=== PATIENT | female | born 1995 | race American Indian/Alaskan Native ===

== ENCOUNTER 2020-06-30 16:54 | Emergency (ER) | payer MEDICAID ==
[2020-06-30 17:00] VITALS: BP 143/91
--- NOTE | 2020-06-30 18:33 | Event Note ---
ED Screening Note ED Screening Note: states she is having vaginal spotting states she is 10 weeks [employer]GER mild cramping no n/v/d no fever no dysuria PMHx HTN with allergy: morphine LNMP 04/16/2020 /P:2/A:0 This initial assessment/diagnostic orders/clinical plan/treatment(s) is/are subject to change based on patients health status, clinical progression and re- assessment by fellow clinical providers in the ED. Further treatment and workup at subsequent clinical providers discretion. Patient/guardian urged not to elope from the ED as their condition may be serious if not clinically assessed and managed. Initial orders include: labs, UA, US
[2020-06-30 19:33] LABS: Blood Urea Nitrogen 9 mg/dL (7-17); Calcium 9.5 mg/dL (8.4-10.2); Hemolysis Index 5
[2020-06-30 19:45] LABS: BUN/Creatinine Ratio 15
[2020-06-30 19:49] LABS: Bilirubin,Urine NEG (Negative); Blood,Urine NEG (Negative); Color,Urine Yellow (Yellow); Mucus,Urine 1+ /HPF
[2020-06-30 19:52] LABS: Basophils % (Auto) 0.5 % (0.0-1.8); Eosinophils # (Auto) 0.1 K/mm3 (0.0-0.4); Eosinophils % (Auto) 0.5 % (0.0-4.3); Hematocrit 31.9 % (30.3-42.9); Hemoglobin 10.1 gm/dl (10.1-14.3); Lymphocytes # (Auto) 3.7 K/mm3 (1.2-5.4); Lymphocytes % (Auto) 37.2 % (13.4-35.0); Mean Corpuscular HGB Conc 32 % (30-34); Mean Corpuscular Volume 77 fl (79-97); Monocytes # (Auto) 0.8 K/mm3 (0.0-0.8); Monocytes % (Auto) 8.1 % (0.0-7.3); Platelet Count 268 K/mm3 (140-440); Red Blood Count 4.16 M/mm3 (3.65-5.03); Red Cell Distribution Width 18.2 % (13.2-15.2)
--- NOTE | 2020-06-30 23:27 | Emergency Department Report ---
ED Female HPI - General Chief complaint: Vaginal Bleeding Stated complaint: 10WKS /BLEEDING Time Seen by Provider: 06/30/20 18:31 Source: patient Mode of arrival: Ambulatory Limitations: No Limitations - History of Present Illness Initial comments: states she is having vaginal spotting states she is 10 weeks [employer] N[employer] mild cramping no n/v/d no fever no dysuria PMHx HTN with allergy: morphine LNMP 04/16/2020 /P:2/A:0 MD Complaint: vaginal bleeding, pelvic pain Onset/Timin -: days(s) Location: suprapubic Radiation: non-radiating Severity: moderate Severity scale (0 -10): 4 Quality: cramping, aching Consistency: intermittent Improves with: none Worsens with: urination Last Menstrual Period: 04/14/20 EDC: 01/19/21 Associated Symptoms: vaginal bleeding (spotting ), abdominal pain (cramping ), dysuria. denies: vaginal discharge, nausea/vomiting, fever/chills - Related Data Sexually active: Yes : 3 Para: 2 A: 0 Previous Rx's Medication Instructions Recorded Last Taken Type Acetaminophen [Pain Relief] 650 mg PO QID PRN #30 tablet 06/30/20 Unknown Rx cephALEXin [Keflex] 500 mg PO BID 7 Days #14 cap 06/30/20 Unknown Rx ED Review of Systems ROS: Stated complaint: 10WKS /BLEEDING Other details as noted in HPI Constitutional: denies: chills, fever Eyes: denies: eye pain, eye discharge, vision change ENT: denies: ear pain, throat pain Respiratory: no symptoms reported Cardiovascular: denies: chest pain, palpitations Endocrine: no symptoms reported Gastrointestinal: abdominal pain, nausea. denies: vomiting Genitourinary: urgency, dysuria, frequency. denies: hematuria, discharge Musculoskeletal: back pain. denies: joint swelling, arthralgia Skin: denies: rash, lesions Neurological: denies: headache, weakness, paresthesias Psychiatric: denies: anxiety, depression Hematological/Lymphatic: denies: easy bleeding, easy bruising ED Past Medical Hx - Past Medical History Previous Medical History?: Yes Hx Hypertension: Yes - Surgical History Past Surgical History?: Yes Additional Surgical History: x2 - Social History Smoking Status: Never Smoker Substance Use Type: None - Medications Home Medications: Home Medications Medication Instructions Recorded Confirmed Last Taken Type Acetaminophen [Pain Relief] 650 mg PO QID PRN #30 tablet 06/30/20 Unknown Rx cephALEXin [Keflex] 500 mg PO BID 7 Days #14 cap 06/30/20 Unknown Rx ED Physical Exam - General Limitations: No Limitations General appearance: alert, in no apparent distress - Head Head exam: Present: atraumatic, normocephalic - Eye Eye exam: Present: normal appearance - ENT ENT exam: Present: mucous membranes moist - Neck Neck exam: Present: normal inspection - Respiratory Respiratory exam: Present: normal lung sounds bilaterally. Absent: respiratory distress, wheezes, stridor, chest wall tenderness - Cardiovascular Cardiovascular Exam: Present: regular rate, normal rhythm, normal heart sounds. Absent: systolic murmur, diastolic murmur, rubs, gallop - GI/Abdominal GI/Abdominal exam: Present: soft, normal bowel sounds. Absent: distended, tenderness, bruit, hernia - Rectal Rectal exam: Present: deferred - Extremities Exam Extremities exam: Present: normal inspection, full ROM, normal capillary refill - Back Exam Back exam: Present: normal inspection, full ROM. Absent: tenderness, CVA tenderness (R), CVA tenderness (L) - Neurological Exam Neurological exam: Present: alert, oriented X3, CN II-XII intact, normal gait - Psychiatric Psychiatric exam: Present: normal affect, normal mood - Skin Skin exam: Present: warm, dry, intact, normal color. Absent: rash ED Course Vital Signs 06/30/20 06/30/20 16:59 20:13 Temperature 32.1 F L 98.6 F Pulse Rate 82 Respiratory 14 Rate Blood Pressure 143/91 O2 Sat by Pulse 100 Oximetry ED Medical Decision Making - Lab Data Result diagrams: 06/30/20 18:50 06/30/20 18:50 Labs 06/30/20 06/30/20 06/30/20 18:50 18:50 18:50 WBC 9.9 RBC 4.16 Hgb 10.1 Hct 31.9 MCV 77 L MCH 24 L MCHC 32 RDW 18.2 H Plt Count 268 Lymph % (Auto) 37.2 H Worth % (Auto) 8.1 H Eos % (Auto) 0.5 Baso % (Auto) 0.5 Lymph # (Auto) 3.7 Worth # (Auto) 0.8 Eos # (Auto) 0.1 Baso # (Auto) 0.0 Seg Neutrophils % 53.7 Seg Neutrophils # 5.3 Sodium 138 Potassium 3.8 Chloride 102.7 Carbon Dioxide 23 Anion Gap 16 BUN 9 Creatinine 0.6 Estimated GFR > 60 BUN/Creatinine Ratio 15 Glucose 87 Calcium 9.5 HCG, Quant [id number] H Urine Color Urine Turbidity Urine pH Ur Specific Laurel Urine Protein Urine Glucose (UA) Urine Ketones Urine Blood Urine Nitrite Urine Bilirubin Urine Urobilinogen Ur Leukocyte Esterase Urine WBC (Auto) Urine RBC (Auto) U Epithel Cells (Auto) Urine Mucus Blood Type 06/30/20 06/30/20 19:00 19:03 WBC RBC Hgb Hct MCV MCH MCHC RDW Plt Count Lymph % (Auto) Worth % (Auto) Eos % (Auto) Baso % (Auto) Lymph # (Auto) Worth # (Auto) Eos # (Auto) Baso # (Auto) Seg Neutrophils % Seg Neutrophils # Sodium Potassium Chloride Carbon Dioxide Anion Gap BUN Creatinine Estimated GFR BUN/Creatinine Ratio Glucose Calcium HCG, Quant Urine Color Yellow Urine Turbidity Clear Urine pH 7.0 Ur Specific Laurel 1.025 Urine Protein 30 mg/dl Urine Glucose (UA) Neg Urine Ketones Neg Urine Blood Neg Urine Nitrite Neg Urine Bilirubin Neg Urine Urobilinogen 2.0 Ur Leukocyte Esterase Mod Urine WBC (Auto) 90.0 H Urine RBC (Auto) 5.0 U Epithel Cells (Auto) 7.0 Urine Mucus 1+ Blood Type O POSITIVE - Radiology Data Radiology results: report reviewed, image reviewed Findings Reporting MD: Tanvir Fisher Dictation Time: June 30, 2020 21:53 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 TECHNIQUE: Grayscale and color imaging performed. COMPARISON: None FINDINGS: Uterus measures 8.8 x 5.4 x 5.8 cm with endometrial echocomplex measuring 2.6 centimeters. There is a small cystic structure near the uterine fundus with a pole measuring 1.2 cm in maximal dimension which corresponds with an EGA of 7 weeks and 3 days. Heart rate is 126 bpm. Estimated delivery date is 02/13/2021. Right ovary was not visualized. Left ovary appears unremarkable. No free fluid. IMPRESSION: 1. Single viable intrauterine gestation as above. 2. Right ovary not visualized. Signer Name: Tanvir Fisher MD Signed: 06/30/2020 9:53 PM Workstation Name: [id number] - Medical Decision Making US OB: Single IUP , 7 weeks and 3 days. Heart rate is 126 bpm., UA: pos for luek, wbc, There is no vaginal bleeding at this time, no abnormal vaginal discharge, plan, Abx, pt will follow up with FIRE CONTROL ASSISTANT ion 2-3 days, pt verbalized agreement and understanding of discharge plan. Critical care attestation.: If time is entered above; I have spent that time in minutes in the direct care of this critically ill patient, excluding procedure time. ED Disposition Clinical Impression: UTI (urinary tract infection) during Qualifiers: Trimester: first trimester Qualified Code(s): O23.41 - Unspecified infection of urinary tract in , first trimester Disposition: - TO HOME OR SELFCARE Is pt being admited?: No Does the pt Need Aspirin: No Condition: Stable Instructions: and Urinary Tract Infection Additional Instructions: Positive , 7 weeks and 3 days. Heart rate is 126 bpm. follow up with OBGYN in 2 days. Prescriptions: cephALEXin [Keflex] 500 mg PO BID 7 Days #14 cap Acetaminophen [Pain Relief] 650 mg PO QID PRN #30 tablet PRN Reason: pain Referrals: ETHAN LOUIE MD [Staff Physician] - 2-3 Days Forms: Work/School Release Form(ED) Time of Disposition: 23:46
--- NOTE | 2020-07-01 07:41 | Ultrasound Report ---
OB Ultrasound HISTORY: , spotting. TECHNIQUE: Grayscale and color imaging performed. COMPARISON: None FINDINGS: Uterus measures 8.8 x 5.4 x 5.8 cm with endometrial echocomplex measuring 2.6 centimeters. There is a small cystic structure near the uterine fundus with a pole measuring 1.2 cm in maxim al dimension which corresponds with an EGA of 7 weeks and 3 days. Heart rate is 126 bpm. Estimated de livery date is 02/13/2021. Right ovary was not visualized. Left ovary appears unremarkable. No free fluid. IMPRESSION: 1. Single viable intrauterine gestation as above. 2. Right ovary not visualized. Signer Name: Tanvir Fisher MD Signed: 06/30/2020 10:53 PM Workstation Name: [id number]
== END 2020-06-30 23:45 | disposition home or self-care (01) ==
LOC: ED 16:54
DX: O23.41 Unspecified infection of urinary tract in pregnancy, first trimester (principal); I10 Essential (primary) hypertension; Z79.899 Other long term (current) drug therapy; Z3A.10 10 weeks gestation of pregnancy
CPT/HCPCS: 36415; 76801; 80048; 81001; 84702; 85025; 86900; 86901; 87086

== ENCOUNTER 2020-12-30 15:10 | Outpatient (CLI) | payer MEDICAID ==
[2020-12-30] MEDS ORDERED: LACTATED RINGERS 500 ML IV ONE (15:48)
[2020-12-30] MEDS ORDERED: LACTATED RINGERS 1,000 ML IV SCH (16:00)
[2020-12-30 16:30] LABS: Bilirubin,Urine NEG (Negative); Blood,Urine NEG (Negative); Color,Urine Yellow (Yellow); Mucus,Urine FEW /HPF; Protein,Urine <15 mg/dL mg/dL (Negative); Urobilinogen,Urine < 2.0 mg/dL (<2.0)
[2020-12-30] MEDS ORDERED: TERBUTALINE 1 MG/1 ML INJ IVP ONE (17:36)
[2020-12-30] MEDS ORDERED: BETAMET ACET/BETAMET NA PH 6 MG/ML INJ 5 ML MDV IM ONE (17:38)
[2020-12-30] MEDS ORDERED: NIFEdipine*For Tocolysis only* 10 MG CAPSULE PO ONE (18:57)
[2020-12-30 20:51] VITALS: BP 112/66
== END 2020-12-30 21:30 | disposition home or self-care (01) ==
LOC: TRG 15:10 → APU 15:59 → TRG 21:30
PROVIDERS: ATTEND Obstetrics & Gynecology
DX: O62.9 Abnormality of forces of labor, unspecified (principal); O42.90 Premature rupture of membranes, unspecified as to length of time between rupture and onset of labor, unspecified weeks of gestation; Z3A.33 33 weeks gestation of pregnancy
CPT/HCPCS: 36415; 59025; 76815; 81001; 84112; 96361; 96372; 96374; J0702; J3105; J7120; 96360

== ENCOUNTER 2020-12-31 17:49 | Outpatient (CLI) | payer MEDICAID ==
[2020-12-31] MEDS ORDERED: BETAMET ACET/BETAMET NA PH 6 MG/ML INJ 5 ML MDV IM ONE (18:02)
[2020-12-31] MEDS ORDERED: LACTATED RINGERS 500 ML IV ONE (18:03)
[2020-12-31 18:07] VITALS: BP 136/83
== END 2020-12-31 18:40 | disposition home or self-care (01) ==
LOC: TRG 17:49 → APU 17:50 → TRG 18:40
PROVIDERS: ATTEND Obstetrics & Gynecology
DX: Z34.93 Encounter for supervision of normal pregnancy, unspecified, third trimester (principal); Z3A.34 34 weeks gestation of pregnancy
CPT/HCPCS: 96372; J0702

== ENCOUNTER 2021-01-26 08:43 | Inpatient (IN) | payer MEDICAID ==
[2021-01-26] MEDS ORDERED: FAMOTIDINE 20 MG/2 ML INJ IV SCH (09:00)
[2021-01-26] MEDS ORDERED: BICITRA ORAL LIQD 30ML PO SCH (09:00)
[2021-01-26] MEDS ORDERED: METOCLOPRAMIDE 10 MG/2 ML INJ IV SCH (09:00)
[2021-01-26] MEDS ORDERED: ceFAZolin/Water 2 GM/20 ML 2 GM/20 ML SYRINGE IV NR ×2 (09:00→10:00)
[2021-01-26] MEDS ORDERED: OXYTOCIN DRIP 30 UNITS/500 ML BAG IV SCH ×3 (09:00→13:00)
[2021-01-26] MEDS ORDERED: FAMOTIDINE 20 MG/2 ML INJ IV ONE (09:37)
[2021-01-26] MEDS ORDERED: METOCLOPRAMIDE 10 MG/2 ML INJ IV ONE (09:37)
[2021-01-26] MEDS ORDERED: BICITRA ORAL LIQD 30ML PO ONE (09:37)
[2021-01-26] MEDS ORDERED: LACTATED RINGERS 1,000 ML IV SCH (09:45)
--- NOTE | 2021-01-26 09:45 | History and Physical Report ---
History of Present Illness Date of examination: 01/26/21 Date of admission: 01/26/21 08:43 Chief complaint: previous C SECTION NEAR TERM FOR REPAT C/S. History of present illness: Patient is a 25-year-old -Bhut[place] female 3 para 2-0-0-2 last months. 04/16/2020 EDC 02/11/2021. She has a history of 2 previous sections she is a prior history of preeclampsia was treated with labetalol his history of 2 previous section patient declined flu shot she had a UTI during this 11 visits. Blood type is O+ antibody screen was negative hematocrit was 32% Pap smear was normal. Rubella immune. VDRL nonreactive. Urine culture positive HIV test was negative platelets were 290,000. Hemoglobin electrophoresis was AAA. Chlamydia and gonorrhea tests were negative trichomonas test was negative vitamin D was 24 hemoglobin A1c was 5.1% she had ultrasound done on 07/22/2020 consistent with a 10.6-week intrauterine she had MSAFP that was -02 22 321 her BUN is 4 creatinine 0.6 urine protein 378 mg on a 24-hour specimen ultrasound 09/23/2020 consistent with a 19.1 diabetic screen was 90 HIV test was negative she had ultrasound 27.5 weeks on 11/18/2020 consistent with 27.5 weeks . She also had an ultrasound on 12/16/2020 consistent with 31.6 weeks intrauterine biophysical profile was 8 out of 8 she gets itching with morphine sulfate Past medical history is negative social history shows she was KISHA-1 on Pap smear last Pap was negative history of 2 sections both at term both babies living social history patient uses light alcohol no smoke tobacco demographics the patient is single 25-year-old. During this has a history of anemia bleeding in the first trimester that resolved. The patient is admitted now for repeat low transverse section for the third time she is considering having a tubal ligation later on after her 6 weeks checkup. 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 PAP smear Family/Genetic History: none Social history: single - Obstetrical History Expected Date of Delivery: 02/11/21 Actual Gestation: 37 Week(s) 5 Day(s) : 3 Para: 2 Hx # Term Pregnancies: 2 Number of Pregnancies: 2 Spontaneous Abortions: 0 Induced : 0 Number of Living Children: 2 Medications and Allergies Allergies Allergy/AdvReac Type Severity Reaction Status Date / Time morphine Allergy Severe Rash Uncoded 01/26/21 08:47 Home Medications Medication Instructions Recorded Confirmed Last Taken Type Aspirin BABY CHEW TAB 1 tab PO HS 12/30/20 12/30/20 12/29/20 23:00 History Labetalol 100mg TAB 100 mg PO BID 12/30/20 12/30/20 12/29/20 23:00 History Vit-Fe Fumar-FA [ 1 tab PO QDAY 12/30/20 12/30/20 12/29/20 22:00 History Vitamin] Active Meds: Active Medications Citric Acid/Sodium Citrate (Bicitra Oral Liqd 30ml) 30 ml PO ONCE JOSE JUAN Stop: 01/26/21 17:00 Famotidine (Famotidine 20 Mg/2 Ml Inj) 20 mg IV ONCE JOSE JUAN Stop: 01/26/21 17:00 Lactated Ringer's (Lactated Ringers) 1,000 mls @ 2,250 mls/hr IV PREOP JOSE JUAN Stop: 01/27/21 09:27 Oxytocin/Sodium Chloride (Pitocin/Ns 30 Unit/500ml) 30 units in 500 mls @ 0 mls/hr IV TITR JOSE JUAN; Protocol Cefazolin Sodium (Ancef/Sterile Water 2 Gm/20 Ml) 2 gm in 20 mls @ 80 mls/hr IV PREOP NR; Protocol Stop: 01/26/21 17:00 Metoclopramide HCl (Metoclopramide 10 Mg/2 Ml Inj) 10 mg IV ONCE JOSE JUAN Stop: 01/26/21 17:00 Review of Systems All systems: negative - Vital Signs Vital signs: Vital Signs Pulse BP 77 135/99 01/26/21 09:08 01/26/21 09:08 Temp Pulse Resp BP Pulse Ox 87 135/99 100 01/26/21 09:34 01/26/21 09:08 01/26/21 09:34 - Physical Exam Breasts: Cardiovascular: Regular rate, Normal S1, Normal S2 Lungs: Positive: Clear to auscultation Abdomen: Positive: soft, normal bowel sounds. Negative: distention, tenderness Genitourinary (Female): Positive: normal external genitalia Vulva: both: normal Vagina: Positive: normal moisture Cervix: Negative: lesion, discharge Uterus: Positive: enlarged Adnexa: both: normal Anus/Rectum: Positive: normal perianal skin Extremities: Positive: normal Deep Tendon Reflex Grade: Normal +2 - Obstetrical FHR: auscultation normal, category 1 Uterine Contraction Monitor Mode: External Uterine Contraction Pattern: Absent Uterine Tone Measurement Phase: Resting Results All other labs normal. Assessment and Plan [facility] RECOMENDED EARLY DELIVERY BECAUSE OF HX OF PIH. PT IS ON ASA BABY AND LABATELOL 100 MGS BID. WILL PROCEED WITH REPEAT L/T C/S.
[2021-01-26 10:26] LABS: Basophils # (Auto) 0.1 K/mm3 (0.0-0.1); Basophils % (Auto) 1.8 % (0.0-1.8); Eosinophils # (Auto) 0.1 K/mm3 (0.0-0.4); Eosinophils % (Auto) 1.7 % (0.0-4.3); Hematocrit 36.1 % (30.3-42.9); Hemoglobin 11.9 gm/dl (10.1-14.3); Lymphocytes # (Auto) 2.2 K/mm3 (1.2-5.4); Lymphocytes % (Auto) 30.7 % (13.4-35.0); Mean Corpuscular HGB Conc 33 % (30-34); Mean Corpuscular Volume 82 fl (79-97); Monocytes # (Auto) 0.4 K/mm3 (0.0-0.8); Red Blood Count 4.43 M/mm3 (3.65-5.03)
[2021-01-26] MEDS: LACTATED RINGERS 1,000 ML IV SCH ×2 (10:44→11:14)
[2021-01-26 11:08] LABS: Platelet Count 150 K/mm3 (140-440)
--- NOTE | 2021-01-26 11:28 | Anesthesia Day of Surgery ---
Anesthesia Day of Surgery - Day of Surgery Patient Examined: Yes Patient H&P Reviewed: Yes Patient is NPO: Yes
--- NOTE | 2021-01-26 11:28 | Anesthesia Consultation ---
Anesthesia Consult and Med Hx Date of service: 01/26/21 - Airway Anesthetic Teeth Evaluation: Good ROM Head & Neck: Adequate Mental/Hyoid Distance: Adequate Mallampati Class: Class II Intubation Access Assessment: Probably Good - Pulmonary Exam CTA: Yes - Cardiac Exam Cardiac Exam: RRR - Pre-Operative Health Status ASA Pre-Surgery Classification: ASA2 Proposed Anesthetic Plan: Spinal - Pulmonary Hx Asthma: No - Cardiovascular System Hx Hypertension: No - Central Nervous System Hx Seizures: No Hx Psychiatric Problems: No - Endocrine Hx Renal Disease: No Hx Hypothyroidism: No Hx Hyperthyroidism: No - Hematic Hx Anemia: No Hx Sickle Cell Disease: No - Other Systems Hx Alcohol Use: No
[2021-01-26] MEDS ORDERED: ONDANSETRON 4 MG/2 ML INJ ONE (11:30)
[2021-01-26] MEDS ORDERED: KETOROLAC 30 MG/1 ML INJ ONE (11:30)
[2021-01-26] MEDS ORDERED: PHENYLEPHRINE/NS 1,000 MCG/10 ML SYRINGE (OR USE) IV ONE (11:30)
[2021-01-26] MEDS ORDERED: ePHEDrine SULFATE 50 MG/1 ML INJ ONE (11:31)
[2021-01-26] MEDS ORDERED: ceFAZolin/STERILE WATER 2 GM/20 ML SYRINGE IV ONE (11:57)
[2021-01-26] MEDS ORDERED: MORPHINE 4 MG/1 ML INJ IV PRN (12:55)
[2021-01-26] MEDS ORDERED: MORPHINE 2 MG/1 ML INJ IV PRN (12:55)
[2021-01-26] MEDS ORDERED: WITCH HAZEL/ GLYCERIN PAD TP PRN (13:00)
--- NOTE | 2021-01-26 13:12 | Procedure Note ---
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 Suresh dictating operative report on Sury Muir. The patient is a 25-year-old F -[place]ian female who is 37 weeks with -induced hypertension has been on baby aspirin and labetalol twice daily to control her hypertension. In consultation with [facility] it was decided patient will be delivered at 37 weeks . The time of surgery was 45 minutes the baby had Apgars 8 9 weight 5 pounds 3 ounces liveborn male estimated blood loss about 500 cc complications none. It was noted that the patient had a partial dehiscence of the old uterine scar with a bubble in place of the uterine incision alongside of the uterine incision. Patient was taken to the operatory given a spinal anesthetic adequate enough for the previous procedure she had indwelling Cleaning cath in place she was then prepped and draped in usual manner we then made the patient ready for repeat section. First the patient was prepped and draped in usual manner we an abdominal cavity anatomically with scalpel and Bovie once we entered abdominal peritoneal cavity we noted that the patient had a bubble on one side of lower uterine incision consistent with partial dehiscence of the old uterine scar. However there was no evidence of any distress or anything related to that uterine scar dehiscence. At this point we made an incision through the bubble into the rest of the lower uterine segment with a scalpel and fetus in vertex presentation was delivered with the help of a Kiwi. Oropharynx suction cord was doubly clamped and cut fetus passed off the table to the nurses in attendance running nursery cord blood was obtained placenta then delivered delivered abdominally uterine incision the uterus was cleaned with wet lap sponges the uterine incision was repaired in 2 layers first layer was in the myometrium uterine ligament 0 Vicryl second layer was superficial tissue and repaired with a running 2-0 Vicryl and draped with. Because the patient had no evidence of vascular Incision to repair we covered the uterine incision with adhesion barrier gutters was cleaned of fluid debris and membranes and tissue all instruments removed from the uterine cavity from the abdominal cavity the anterior abdominal peritoneum was repaired running 2-0 chromic on a GI needle fascia was repaired in the rectus muscle that had been torn during the procedure were repaired with a transfixing suture #0 Vicryl subsequently we closed the fascia with a continuous interlocking 0 Vicryl subcutaneous panniculus was closed with a running subcuticular running cutaneous 2-0 Vicryl the skin was repaired with a running subcuticular 4-0 Vicryl and drained with Dermabond the patient tolerated procedure well she was then returned to the recovery room scheduling before she was returned to recovery room. Anesthesia: spinal Surgeon: MINDY SURESH Estimated blood loss: other (500) Pathology: none Specimen disposition: discarded Condition: stable Disposition: PACU
[2021-01-26] MEDS ORDERED: MAGNESIUM SULFATE 4 GM/100 ML BAG IV ONE ×2 (13:48→14:08)
[2021-01-26] MEDS ORDERED: MAGNESIUM SULFATE 40GM/1000ML 40 GM/1,000 ML BAG IV SCH ×2 (14:00)
[2021-01-26] MEDS ORDERED: ONDANSETRON 4 MG/2 ML INJ IV PRN (14:00)
[2021-01-26] MEDS ORDERED: LANOLIN/ZINC/DIMETHICONE (LANSINOH) 7 GM TP PRN (14:00)
[2021-01-26] MEDS ORDERED: NALOXONE 0.4 MG/1 ML INJ IV PRN (14:00)
[2021-01-26] MEDS ORDERED: MAGNESIUM SULFATE 40GM/1000ML 40 GM/1,000 ML BAG IV ONE (14:08)
[2021-01-26] MEDS: KETOROLAC 30 MG/1 ML INJ IV PRN (22:24)
[2021-01-27 01:11] LABS: Hematocrit 33.2 % (30.3-42.9)
[2021-01-27] MEDS: KETOROLAC 30 MG/1 ML INJ IV PRN ×3 (04:10→16:27)
--- NOTE | 2021-01-27 11:51 | Progress Note ---
Assessment and Plan A: POD #1 Preeclampsia P: Follow Routine PostOp Orders Continue Magnesium Sulfate 2G/Hourly x 24 hours PostOp Continue Standard Magnesium Precautions Restart Labetolol 100mg PO BID Subjective - Subjective Date of service: 01/27/21 Patient reports: appetite normal, voiding normally (Cleaning in place; adquate urine output), pain well controlled, flatus, other (Denies HAs, visual changes, N&V, and epigastic pain) : doing well, bottle feeding (and ) Objective - Vital Signs Latest vital signs: Vital Signs Temp Pulse Resp BP BP Pulse Ox 01/27/21 11:44 92 H 100 01/27/21 11:39 85 100 01/27/21 11:34 85 99 01/27/21 11:29 89 100 01/27/21 11:25 90 156/76 01/27/21 11:24 85 100 01/27/21 11:19 92 H 100 01/27/21 11:14 96 H 99 01/27/21 11:09 90 98 01/27/21 11:04 82 140/81 99 01/27/21 10:59 91 H 99 01/27/21 10:54 93 H 100 01/27/21 10:49 84 98 01/27/21 10:44 83 98 01/27/21 10:39 83 97 01/27/21 10:34 83 98 01/27/21 10:29 82 98 01/27/21 10:24 84 121/73 99 01/27/21 10:19 84 98 01/27/21 10:14 83 97 01/27/21 10:09 83 97 01/27/21 10:04 83 97 01/27/21 09:59 86 97 01/27/21 09:54 82 130/76 98 01/27/21 09:49 82 98 01/27/21 09:45 84 91 01/27/21 09:44 80 99 01/27/21 09:39 90 99 01/27/21 09:34 85 100 01/27/21 09:29 92 H 99 01/27/21 09:24 83 144/83 100 01/27/21 09:19 87 100 01/27/21 09:14 83 99 01/27/21 09:09 86 100 01/27/21 09:04 90 100 01/27/21 08:59 89 100 01/27/21 08:55 88 182/71 01/27/21 08:54 89 99 01/27/21 08:49 86 100 01/27/21 08:44 84 100 01/27/21 08:39 86 99 01/27/21 08:34 88 100 01/27/21 08:29 85 100 01/27/21 08:24 81 135/78 99 01/27/21 08:19 82 100 01/27/21 08:14 82 99 01/27/21 08:09 85 97 01/27/21 08:04 81 98 01/27/21 08:00 97.6 F 78 16 155/80 99 01/27/21 07:59 85 98 01/27/21 07:54 78 155/80 99 01/27/21 07:49 86 98 01/27/21 07:44 83 99 01/27/21 07:39 83 99 01/27/21 07:34 83 100 01/27/21 07:29 87 99 01/27/21 07:24 84 147/87 99 01/27/21 07:19 89 99 01/27/21 07:14 80 100 01/27/21 07:09 81 100 01/27/21 07:04 81 100 01/27/21 06:59 82 100 01/27/21 06:54 74 135/78 99 01/27/21 06:50 79 129/78 01/27/21 06:49 75 98 01/27/21 06:44 72 99 01/27/21 06:39 77 99 01/27/21 06:34 75 99 01/27/21 06:29 75 99 01/27/21 06:24 74 116/78 100 01/27/21 06:19 74 100 01/27/21 06:14 73 99 01/27/21 06:09 73 99 01/27/21 06:04 74 99 01/27/21 05:59 73 100 01/27/21 05:54 77 119/69 99 01/27/21 05:49 77 99 01/27/21 05:44 78 99 01/27/21 05:39 77 99 01/27/21 05:34 78 99 01/27/21 05:29 77 99 01/27/21 05:24 77 125/75 99 01/27/21 05:19 75 98 01/27/21 05:14 77 100 01/27/21 05:09 81 99 01/27/21 05:04 79 99 01/27/21 04:59 83 99 01/27/21 04:54 81 126/80 100 01/27/21 04:49 80 99 01/27/21 04:44 77 99 01/27/21 04:39 84 100 01/27/21 04:34 74 99 01/27/21 04:29 78 100 01/27/21 04:24 76 135/78 99 01/27/21 04:19 80 100 01/27/21 04:14 82 99 01/27/21 04:10 18 01/27/21 04:09 77 100 01/27/21 04:04 73 100 01/27/21 03:59 79 99 01/27/21 03:54 77 144/85 100 01/27/21 03:49 75 99 01/27/21 03:44 79 98 01/27/21 03:39 81 97 01/27/21 03:34 77 99 01/27/21 03:29 77 98 01/27/21 03:24 77 130/72 98 01/27/21 03:19 81 99 01/27/21 03:14 78 99 01/27/21 03:09 86 100 01/27/21 03:04 76 99 01/27/21 02:59 76 99 01/27/21 02:54 78 99 01/27/21 02:49 78 99 01/27/21 02:44 78 99 01/27/21 02:39 78 100 01/27/21 02:34 79 99 01/27/21 02:29 79 99 01/27/21 02:24 78 100 01/27/21 02:19 80 99 01/27/21 02:14 79 100 01/27/21 02:09 79 100 01/27/21 02:04 82 100 01/27/21 01:59 81 100 01/27/21 01:54 79 100 01/27/21 01:49 78 100 01/27/21 01:44 81 100 01/27/21 01:39 84 100 01/27/21 01:34 86 100 01/27/21 01:29 91 H 100 01/27/21 01:26 87 92 01/27/21 01:24 85 122/71 100 01/27/21 01:19 77 98 01/27/21 01:16 89 91 01/27/21 01:14 83 96 01/27/21 01:09 80 100 01/27/21 01:04 78 100 01/27/21 00:59 78 99 01/27/21 00:54 79 130/72 100 01/27/21 00:49 78 99 01/27/21 00:44 74 100 01/27/21 00:39 80 99 01/27/21 00:34 83 99 01/27/21 00:29 79 100 01/27/21 00:24 75 100 01/27/21 00:19 79 99 01/27/21 00:14 81 100 01/27/21 00:09 81 100 01/27/21 00:04 86 99 01/26/21 23:59 81 100 01/26/21 23:54 87 130/67 100 01/26/21 23:49 83 100 01/26/21 23:44 84 100 01/26/21 23:39 80 100 01/26/21 23:34 77 100 01/26/21 23:29 84 100 01/26/21 23:24 79 138/61 99 01/26/21 23:19 81 99 01/26/21 23:14 82 99 01/26/21 23:09 80 99 01/26/21 23:04 79 100 01/26/21 22:59 82 99 01/26/21 22:54 84 129/73 99 01/26/21 22:49 80 100 01/26/21 22:44 89 100 01/26/21 22:39 85 100 01/26/21 22:34 88 100 01/26/21 22:29 89 99 01/26/21 22:24 83 18 131/77 99 01/26/21 22:19 85 100 01/26/21 22:14 82 100 01/26/21 22:09 89 100 01/26/21 22:04 88 100 01/26/21 21:59 87 100 01/26/21 21:54 91 H 132/67 100 01/26/21 21:49 87 100 01/26/21 21:44 97 H 100 01/26/21 21:39 89 100 01/26/21 21:34 89 100 01/26/21 21:29 92 H 99 01/26/21 21:24 98 H 131/77 99 01/26/21 21:19 91 H 99 01/26/21 21:14 92 H 100 01/26/21 21:09 94 H 100 01/26/21 21:04 93 H 100 01/26/21 20:59 93 H 100 01/26/21 20:54 86 131/64 100 01/26/21 20:49 91 H 99 01/26/21 20:44 88 100 01/26/21 20:39 91 H 98 01/26/21 20:34 82 100 01/26/21 20:29 89 100 01/26/21 20:24 86 114/58 100 01/26/21 20:19 82 100 01/26/21 20:14 85 100 01/26/21 20:09 89 99 01/26/21 20:04 89 100 01/26/21 19:59 86 99 01/26/21 19:54 87 115/69 100 01/26/21 19:49 88 100 01/26/21 19:44 87 100 01/26/21 19:43 90 124/73 01/26/21 19:39 84 100 01/26/21 19:34 89 99 01/26/21 19:29 86 99 01/26/21 19:24 84 127/79 100 01/26/21 19:19 90 100 01/26/21 19:14 88 100 01/26/21 19:09 95 H 100 01/26/21 19:04 102 H 100 01/26/21 18:59 90 99 01/26/21 18:54 93 H 151/89 100 01/26/21 18:49 89 100 01/26/21 18:48 89 92 01/26/21 18:44 90 100 01/26/21 18:42 86 91 01/26/21 18:39 83 99 01/26/21 18:36 83 80 L 01/26/21 18:34 87 100 01/26/21 18:29 73 100 01/26/21 18:24 81 99 01/26/21 18:23 76 120/80 01/26/21 18:19 80 100 01/26/21 18:14 82 100 01/26/21 18:09 72 100 01/26/21 18:04 84 99 01/26/21 17:59 102 H 100 01/26/21 17:54 91 H 100 01/26/21 17:49 75 99 01/26/21 17:44 81 100 01/26/21 17:39 80 100 01/26/21 17:34 78 98 01/26/21 17:29 82 100 01/26/21 17:24 77 99 01/26/21 17:19 81 99 01/26/21 17:14 79 117/54 99 01/26/21 17:09 83 99 01/26/21 17:04 75 99 01/26/21 17:00 79 134/59 01/26/21 16:59 78 100 01/26/21 16:54 89 98 01/26/21 16:49 75 98 01/26/21 16:44 81 99 01/26/21 16:39 81 99 01/26/21 16:34 86 100 01/26/21 16:29 86 98 01/26/21 16:24 84 98 01/26/21 16:19 83 99 01/26/21 16:14 85 105/58 99 01/26/21 16:09 83 99 01/26/21 16:04 84 98 01/26/21 15:59 83 121/60 99 01/26/21 15:54 84 99 01/26/21 15:49 84 100 01/26/21 15:44 84 99 01/26/21 15:39 81 100 01/26/21 15:34 87 98 01/26/21 15:29 79 103/58 99 01/26/21 15:24 88 99 01/26/21 15:19 85 99 01/26/21 15:18 81 102/57 01/26/21 15:14 83 100 01/26/21 13:56 68 19 118/77 100 01/26/21 13:45 65 16 164/115 100 01/26/21 13:30 66 21 164/112 100 01/26/21 13:16 66 14 162/112 98 01/26/21 13:05 68 15 91/62 98 01/26/21 13:00 67 17 119/75 99 01/26/21 12:56 97.7 F 71 16 124/77 99 Intake and Output 01/26/21 01/27/21 01/27/21 22:59 06:59 14:59 Output Total 2900 2500 500 Balance -2900 -2500 -500 Output: Urine 2900 2500 500 Indwelling Catheter 2900 2500 500 Other: Total, Output Amount 1000 900 500 - Exam Breasts: Present: normal Cardiovascular: Present: Regular rate Lungs: Present: Clear to auscultation, Normal air movement Abdomen: Present: normal appearance, soft, normal bowel sounds Uterus: Present: normal, firm, fundal height below umbilicus Extremities: Present: normal Incision: Present: normal, dry, intact - Labs Labs: Abnormal lab results 01/26/21 01/27/21 Range/Units 17:37 01:40 Magnesium 5.40 H 6.40 H (1.7-2.3) mg/dL
[2021-01-27] MEDS ORDERED: LACTATED RINGERS 1,000 ML ONE (13:26)
[2021-01-27] MEDS ORDERED: LACTATED RINGERS 1,000 ML IV SCH (13:30)
[2021-01-27] MEDS: HYDROcodone/ACETAMINOPHEN 5-325 MG TAB PO PRN (17:49)
--- NOTE | 2021-01-27 20:47 | Post Anesthesia Evaluation ---
- Post Anesthesia Evaluation Patient Participated: Yes Airway Patent: Yes Stable Respiratory Function: Yes Nausea/Vomiting: No Temp > 96.8F: Yes Pain Manageable: Yes Adequeate Hydration: Yes Anesthesia Complications: No Block Receding Appropriately: Yes
[2021-01-27] MEDS: IBUPROFEN 800 MG TAB PO PRN (22:37)
[2021-01-27] MEDS ORDERED: SIMETHICONE 80 MG CHEW TAB ONE (22:40)
[2021-01-27] MEDS ORDERED: SIMETHICONE 80 MG CHEW TAB PO PRN (22:41)
[2021-01-28] MEDS: HYDROcodone/ACETAMINOPHEN 5-325 MG TAB PO PRN ×3 (00:02→11:24)
--- NOTE | 2021-01-28 09:28 | Discharge Summary ---
Providers - Providers Date of Admission: 01/26/21 08:43 Date of discharge: 01/28/21 Attending physician: MINDY SURESH MD Primary care physician: SUN SKINNER Hospitalization Reason for admission: section Delivery: Procedure: repeat low transverse Episiotomy: none Laceration: none Incision: normal, dry, intact Other procedures: none complications: none Mccrory baby: male Hospital course: Pt was admitted to [facility] and had a repeat LTCS. She was started on MgSo4 and Labetalol r/t PIH. See H&P, delivery summary, and pp notes. Condition at discharge: Stable Disposition: DC-01 TO HOME OR SELFCARE Plan - Provider Discharge Summary Activity: routine, no sex for 6 weeks, no heavy lifting 4 weeks, no strenuous exercise Diet: routine Instructions: routine Additional instructions: [] Smoking cessation referral if applicable(refer to patient education folder for contact #) [] Refer to [facility] Book[facility] Call your doctor immediately for: * Fever > 100.5 * Heavy vaginal bleeding ( >1 pad per hour) * Severe persistent headache * Shortness of breath * Reddened, hot, painful area to leg or breast * Drainage or odor from incision. * Keep incision clean and dry at all times and follow doctor's instructions regarding bathing/showering - Follow up plan Follow up: SUN SKINNER MD [Primary Care Provider] - 14 Days
[2021-01-28] MEDS: IBUPROFEN 800 MG TAB PO PRN (09:33)
[2021-01-28 12:38] VITALS: BP 119/44
== END 2021-01-28 15:30 | disposition home or self-care (01) | DRG 766 ==
LOC: APU 08:43 → LD 13:40 → OB 01-27 16:00
PROC: 10D00Z1 Extraction of Products of Conception, Low, Open Approach (ICD-10-PCS; principal; 2021-01-26)
DX: O14.94 Unspecified pre-eclampsia, complicating childbirth (principal); O13.4 Gestational [pregnancy-induced] hypertension without significant proteinuria, complicating childbirth; O34.211 Maternal care for low transverse scar from previous cesarean delivery; Z20.822 Contact with and (suspected) exposure to COVID-19; Z3A.37 37 weeks gestation of pregnancy; Z37.0 Single live birth; Z88.5 Allergy status to narcotic agent; Z79.82 Long term (current) use of aspirin; Z79.899 Other long term (current) drug therapy
CPT/HCPCS: 36415; 83735; 85014; 85018; 85025; 86850; 86900; 86901; G0378; J0690; J1885; J2370; J2405; J2765; J3475; J7120; U0003